=== PATIENT | female | born 1950 | race Caucasian/White ===

== ENCOUNTER 2022-01-23 03:58 | Day surgery (SDC) | payer OTHER ==
[2022-01-21 09:10] VITALS: BMI 28.5
[2022-01-23 08:32] VITALS: TEMP 98
[2022-01-23 09:13] VITALS: PULSE 57
[2022-01-23 09:40] VITALS: BP 137/82; RESP 14
== END 2022-01-23 09:25 | disposition home or self-care (01) ==
LOC: JASU-ENDO 03:58
PROVIDERS: ATTEND Internal Medicine Gastroenterology
PROC: 0DBN8ZX Excision of Sigmoid Colon, Via Natural or Artificial Opening Endoscopic, Diagnostic (ICD-10-PCS; principal; 2022-01-23 08:00)
DX: Z12.11 Encounter for screening for malignant neoplasm of colon (principal); D12.7 Benign neoplasm of rectosigmoid junction; K57.30 Diverticulosis of large intestine without perforation or abscess without bleeding; K64.8 Other hemorrhoids
CPT/HCPCS: 88305-TC